=== PATIENT | female | born 1990 | race Caucasian/White ===

== ENCOUNTER 2023-02-22 21:37 | Emergency (ER) | payer BC, MEDICAID, OTHER ==
[2023-02-22 23:01] VITALS: BP 129/92; PULSE 94
[2023-02-25 10:51] LABS: C.TRACHOMATIS BY TMA Negative (Negative); N.GONORRHOEAE BY TMA Negative (Negative); SOURCE URINE
== END 2023-02-22 23:31 | disposition home or self-care (01) ==
LOC: DL.ED 21:37
DX: Z20.2 Contact with and (suspected) exposure to infections with a predominantly sexual mode of transmission (principal); E66.9 Obesity, unspecified; Z88.1 Allergy status to other antibiotic agents; Z79.899 Other long term (current) drug therapy
CPT/HCPCS: 36415; 86592; 87210; 87389; 87491; 87591; 99283